=== PATIENT | female | born 1985 | race Caucasian/White ===

== ENCOUNTER 2016-08-07 08:36 | Emergency (ER) | payer OTHER ==
[~2016-08-07] VITALS: Ht 170.2 cm; Wt 111.4 kg
[~2016-08-07 08:36] MED LIST: CITA20TA9 PO; RANI150T3 PO
[2016-08-07 08:40] VITALS: BP 144/88; PULSE 76; TEMP 36.8; O2SAT 97; Ht 170.2 cm; Wt 111.4 kg
[2016-08-07] MEDS ORDERED: CITA40TA12 PO (08:59)
[2016-08-07] MEDS ORDERED: DEXAMETHASONE SOD INJ 10 MG/ML VIAL IM ONE (09:15)
[2016-08-07] MEDS ORDERED: PRED50TA PO (09:41)
--- NOTE | 2016-08-07 09:42 | EMERGENCY ROOM VISIT NOTE ---
ED Visit Note First contact with patient: 08:53 CHIEF COMPLAINT : Sore throat times one day HISTORY OF PRESENT ILLNESS: Patient is a 31-year-old white female who presents to the emergency department for evaluation of a sore throat and a swollen uvula that started this morning. Patient reports that she has had 2-3 days of sinus congestion, cough, nasal congestion and a sinus headache. She states she was unsure whether she was having symptoms related to a cold or allergies. She did have a minor sore throat with this, but noted that it was bilateral. She was using some ibuprofen which was helping with her throat pain. This morning, she woke up noting that her uvula was more sore and swollen, and she was having trouble gagging. She noted that there was some bleeding in the back of her throat. She does snore, denies any trauma to the area, denies any fever. She' s never had symptoms similar to this previously. She rates her discomfort a 7/ 10. She denies any posterior neck pain or stiffness. No rashes. She denies any cough, chest pain, no sputum production. No abdominal pain, no nausea or vomiting. REVIEW OF SYSTEMS: Review of systems as per HPI. All other systems reviewed were negative. 10 systems reviewed. PMH: Electronic medical records are reviewed and summarized as above/below. See Problem List. SOCIAL HISTORY: Patient lives at home with her and children. 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 PHYSICAL EXAM: Vital Signs: Reviewed Nurse's notes. MENTAL STATUS: Patient is a pleasant, well-appearing 31-year-old white female who is awake and alert and laying semiupright on the gurney in no acute distress. She is able to speak in full sentences. EARS: Tympanic membranes intact, not inflamed, have normal contour. External canals clear. THROAT: The pharynx not inflamed and or swollen. No exudates are seen on the tonsils. The oropharyngeal airway is patent. Uvula is midline, slightly swollen and almost hemorrhagic in appearance, no active bleeding however. Soft palate is unremarkable. NOSE: Nares patent, turbinates moist without rhinorrhea. SKIN: Clear and dry, no eruptions. No cyanosis, no petechiae. NECK: Supple, without lymphadenopathy. No meningeal signs. HEART: Regular rate and rhythm, with normal S1 and S2, no murmur or gallop or rub is heard. LUNGS: Breath sounds equal and clear to auscultation without wheezes, rales, or rhonchi heard. EMERGENCY DEPARTMENT COURSE: The patient was seen and evaluated as above. Her old records were reviewed. She is isolated swelling in her uvula, in the setting of upper respiratory symptoms over the last couple of days. Patient was medicated with Decadron 10 mg IM. She does not have any evidence for airway compromise, no trismus, no evidence for retropharyngeal or peritonsillar abscess. She does not appear to have an infectious source and therefore antibiotics were not felt to be indicated. She is encouraged to use Tylenol or ibuprofen for discomfort, soft, liquid diet, saltwater gargles, and was placed on a short course of oral prednisone. She was educated on the worrisome signs or symptoms for which she should return to the emergency department and otherwise encouraged to recheck with her PCP in one to 2 days. Problem List Medical Problems: (1) Dysmetabolic Syndrome X Status: Chronic (2) Hypertension Nos Status: Chronic (3) Personal History Of Urinary Calculi Status: Chronic (4) Status: Resolved (5) Right ankle sprain Status: Resolved Surgical Problems: (1) H/O section Status: Resolved Current/Historical Medications Scheduled Citalopram Hydrobromide (Celexa), 40 MG PO DAILY Prednisone (Prednisone), 50 MG PO DAILY Ranitidine Hcl (Zantac), 150 MG PO BID Allergies Coded Allergies: No Known Allergies (Verified , 08/07/16) Vital Signs Date Time Temp Pulse Resp B/P Pulse Ox O2 Delivery O2 Flow Rate FiO2 08/07/16 08:50 Room Air 98 08/07/16 08:40 36.8 76 18 144/88 97 Room Air Medications Administered Medications (Trade) Dose Ordered Sig/Susan Route Start Time Stop Time Status Last Admin Dose Admin Dexamethasone Sodium Phosphate (Decadron Inj) 10 mg NOW ONCE IM 08/07/16 09:15 08/07/16 09:16 DC 08/07/16 09:14 10 MG Departure Information Impression Primary Impression: Uvulitis Prescriptions Prednisone (Prednisone) 50 Mg Tab 50 MG PO DAILY for 4 Days, #4 TAB Prov: Clover Castro PA 08/07/16 Referrals Misa Harvey D.O. (PCP) Patient Instructions My [facility] Additional Instructions Prednisone 50mg: Once daily until the prescription is finished. It is best to take this earlier in the day as some patients note occasional difficulty falling asleep when taken in the late evening. Acetaminophen(Tylenol) may be used for fever or pain. Use 1000mg every six hours as needed. Avoid using more than 3000mg in a 24 hour period. (AND/OR) Ibuprofen(Motrin, Advil) may be used for fever or pain. Use 600mg every six hours as needed. Take with food. Avoid using more than 2400mg in a 24 hour period. Do not use 2400mg per day for more than three consecutive days without physician direction. Prolonged inappropriate use can lead to stomach upset or ulcers. Rest and drink plenty of fluids. Continue current medications. Return to the ER for worsening throat pain, inability to swallow, severe headache, neck stiffness, chest pain, difficulty breathing, fevers, vomiting, worsening of your condition, or as needed. Follow up with your primary physician this week for a recheck of your current condition.
== END 2016-08-07 09:51 | disposition home or self-care (01) ==
LOC: C.EDB 08:37
DX: K12.2 Cellulitis and abscess of mouth (principal); E88.81 Metabolic syndrome and other insulin resistance; I10 Essential (primary) hypertension; Z87.442 Personal history of urinary calculi; Z79.899 Other long term (current) drug therapy

== ENCOUNTER 2017-03-17 11:09 | Outpatient (CLI) | payer OTHER ==
[~2017-03-17] VITALS: Ht 170.2 cm; Wt 116.5 kg
[~2017-03-17 11:09] MED LIST changes: -CITA20TA9 PO; +CITA40TA12 PO
[2017-03-17] MEDS ORDERED: PRENTAB26 PO (12:05)
[2017-03-17] MEDS ORDERED: PRLSR20 PO (12:05)
[2017-03-17 12:06] VITALS: Ht 170.2 cm; Wt 116.5 kg
[2017-03-17 12:08] LABS: HEMATOCRIT 34.5 % (37-47); HEMOGLOBIN 11.8 g/dL (12.0-16.0); MEAN CORPUSCULAR HEMOGLOBIN 29.4 pg (25-34); MEAN CORPUSCULAR HGB CONC 34.2 g/dl (32-36); MEAN PLATELET VOLUME 9.9 fL (7.4-10.4); PLATELET COUNT 275 K/uL (130-400); RED CELL DISTRIBUTION WIDTH CV 14.1 % (11.5-14.5); RED CELL DISTRIBUTION WIDTH SD 44.4 fL (36.4-46.3)
[2017-03-17 12:27] LABS: ALBUMIN 2.9 gm/dl (3.4-5.0); ALT/SGPT 12 U/L (12-78); AST/SGOT 10 U/L (15-37); BLOOD UREA NITROGEN 10 mg/dl (7-18); CALCIUM 8.9 mg/dl (8.5-10.1); CARBON DIOXIDE 22 mmol/L (21-32); GLUCOSE 84 mg/dl (70-99); POTASSIUM 3.5 mmol/L (3.5-5.1); SODIUM 138 mmol/L (136-145)
[2017-03-17 12:30] LABS: ALKALINE PHOSPHATASE 72 U/L (45-117); TOTAL PROTEIN 6.8 gm/dl (6.4-8.2)
--- NOTE | 2017-03-17 13:41 | DIAGNOSTIC IMAGING REPORT ---
LIMITED (US) CLINICAL HISTORY: Chronic hypertension. COMPARISON STUDY: ultrasound 07/06/2012. FINDINGS: Transabdominal scanning of the fetus was performed. The cervix measures 3.8 cm in length and appears closed. heart rate is 129 beats per minutes. The fetus is in a breech presentation. Amniotic fluid index is 13.3 cm. Posterior placenta. No subchorionic hematoma identified. The composite ultrasound age of the fetus is approximate 24 weeks and 6 days plus or minus one week. weight is 1 pound and 12 ounces +/- ounces. IMPRESSION: 1. Estimated age of 24 weeks and 6 days. 2. heart rate was 129 bpm. 3. The cervix is closed and measures 3.8 cm in length. 4. Normal amniotic fluid index. Electronically signed by: Desmond Longoria M.D. 03/17/2017 1:39 PM Dictated Date/Time: 03/17/2017 1:34 PM
--- NOTE | 2017-03-17 14:17 | Progress Note ---
Progress Note Date of Service Mar 17, 2017. Progress Note Outpatient Note 32 F P2002 at 25 weeks with elevated BP in the office. Seen on L&D for evaluation of chronic hypertension vs. early PIH. Labs done and normal . FHT Cat 1. No contractions. denies headaches or blurred vision. No edema noted on hands, feet or face. Will d/c home. No evidence of hypertension to be treated at this time. Follow up in 1 week in office. Last 24 Hours Test 03/17/17 11:52 White Blood Count 12.00 K/uL Red Blood Count 4.01 M/uL Hemoglobin 11.8 g/dL Hematocrit 34.5 % Mean Corpuscular Volume 86.0 fL Mean Corpuscular Hemoglobin 29.4 pg Mean Corpuscular Hemoglobin Concent 34.2 g/dl RDW Standard Deviation 44.4 fL RDW Coefficient of Variation 14.1 % Platelet Count 275 K/uL Mean Platelet Volume 9.9 fL Sodium Level 138 mmol/L Potassium Level 3.5 mmol/L Chloride Level 106 mmol/L Carbon Dioxide Level 22 mmol/L Anion Gap 10.0 mmol/L Blood Urea Nitrogen 10 mg/dl Creatinine 0.40 mg/dl Est Creatinine Clear Calc Drug Dose 263.9 ml/min Estimated GFR () > 150.0 Estimated GFR (Non- 136.9 BUN/Creatinine Ratio 24.6 Random Glucose 84 mg/dl Calcium Level 8.9 mg/dl Total Bilirubin 0.3 mg/dl Aspartate Amino Transf (AST/SGOT) 10 U/L Alanine Aminotransferase (ALT/SGPT) 12 U/L Alkaline Phosphatase 72 U/L Total Protein 6.8 gm/dl Albumin 2.9 gm/dl Globulin 3.9 gm/dl Albumin/Globulin Ratio 0.7
== END 2017-03-17 14:20 | disposition home or self-care (01) ==
LOC: C.OPB 11:09 → C.LD 11:09 → C.OPB 14:20
PROVIDERS: ATTEND Obstetrics & Gynecology
DX: O16.2 Unspecified maternal hypertension, second trimester (principal); Z3A.25 25 weeks gestation of pregnancy

== ENCOUNTER 2017-06-25 05:40 | Inpatient (IN) | payer OTHER ==
[2017-06-16 15:10] VITALS: BMI 42.0
--- NOTE | 2017-06-16 15:25 | PAT Medication Instructions ---
Service Date Jun 16, 2017. Current Home Medication List Citalopram Hydrobromide (Celexa), 40 MG PO HS Labetalol (Normodyne), 200 MG PO BID Multivit/Min/Iron/Fol Ac/Pren ( Vitamin), 1 TAB PO QPM Omeprazole (Prilosec), 20 MG PO QAM Medication Instructions For Your Scheduled Surgery - Take the following medications the morning of surgery with a sip of water: Labetalol (Normodyne), 200 MG PO BID Omeprazole (Prilosec), 20 MG PO QAM - Take the following medications as scheduled the night before surgery: Citalopram Hydrobromide (Celexa), 40 MG PO HS Labetalol (Normodyne), 200 MG PO BID Multivit/Min/Iron/Fol Ac/Pren ( Vitamin), 1 TAB PO QPM If you have any questions please call us at [phone] or [phone] or [phone]
[2017-06-16 16:02] LABS: BASO % 0.2 %; BASO ABS # 0.02 K/uL (0-0.2); EOS % 1.7 %; EOS ABS # 0.18 K/uL (0-0.5); HEMATOCRIT 32.7 % (37-47); IG# 0.05 K/uL (0.00-0.02); LYMPH % 17.6 %; LYMPH ABS # 1.87 K/uL (1.2-3.4); MEAN CELL VOLUME 83.6 fL (80-100); MEAN CORPUSCULAR HEMOGLOBIN 28.1 pg (25-34); MEAN CORPUSCULAR HGB CONC 33.6 g/dl (32-36); MONO % 8.7 %; MONO ABS # 0.93 K/uL (0.11-0.59); NEUT % 71.3 %; NEUT ABS # 7.58 K/uL (1.4-6.5); PLATELET COUNT 261 K/uL (130-400); RED CELL DISTRIBUTION WIDTH CV 14.3 % (11.5-14.5); RED CELL DISTRIBUTION WIDTH SD 43.9 fL (36.4-46.3); WHITE BLOOD COUNT 10.63 K/uL (4.8-10.8)
[2017-06-16 16:14] LABS: CREATININE 0.65 mg/dl (0.60-1.20); POTASSIUM 3.8 mmol/L (3.5-5.1)
[~2017-06-25] VITALS: Ht 170.2 cm; Wt 124.1 kg
[2017-06-25] VITALS (14 sets, daily range): BP systolic 138–152; BP diastolic 80–96; PULSE 80–97; TEMP 36.7–37.2; O2SAT 95–98; Ht 170.2 cm; Wt 124.1 kg
[~2017-06-25 05:40] MED LIST changes: +LABE1TAB28 PO; +PRENTAB26 PO; +PRLSR20 PO; -RANI150T3 PO
[2017-06-25] MEDS ORDERED: CITRIC ACID/SODIUM CITRATE 15 ML UDC PO ONE (05:45)
[2017-06-25] MEDS ORDERED: CEFAZOLIN IV 3,000 MG in DEXTROSE 5% 50ML 50 ML IV SCH (06:00)
[2017-06-25 06:06] LABS: BASO % 0.1 %; BASO ABS # 0.01 K/uL (0-0.2); EOS % 1.6 %; EOS ABS # 0.16 K/uL (0-0.5); HEMATOCRIT 34.3 % (37-47); HEMOGLOBIN 11.4 g/dL (12.0-16.0); IG# 0.05 K/uL (0.00-0.02); LYMPH % 21.6 %; LYMPH ABS # 2.18 K/uL (1.2-3.4); MEAN CELL VOLUME 83.1 fL (80-100); MEAN CORPUSCULAR HEMOGLOBIN 27.6 pg (25-34); MEAN PLATELET VOLUME 9.7 fL (7.4-10.4); MONO % 8.2 %; MONO ABS # 0.83 K/uL (0.11-0.59); NEUT ABS # 6.88 K/uL (1.4-6.5); PLATELET COUNT 264 K/uL (130-400); RED CELL DISTRIBUTION WIDTH CV 14.2 % (11.5-14.5); WHITE BLOOD COUNT 10.11 K/uL (4.8-10.8)
[2017-06-25 06:18] LABS: MEAN CORPUSCULAR HGB CONC 33.2 g/dl (32-36)
[2017-06-25] MEDS ORDERED: MoRPHine SULFATE PF 1 MG/ML 10 ML AMP/VIAL ONE (06:55)
--- NOTE | 2017-06-25 06:58 | History & Physical Bridge Note ---
H&P Re-Evaluation Bridge Note: I have examined the patient, reviewed the History & Physical and in the interval since the performance of the History & Physical I have noted the following changes of clinical significance: No changes noted
[2017-06-25] MEDS ORDERED: LACTATED RINGER'S 1000ML 500 ML IV PRN (07:17)
[2017-06-25] MEDS ORDERED: NALOXONE HCL INJ 1 MG in SODIUM CHLORIDE 0.9% 1000ML 1,000 ML IV PRN ×4 (07:17)
[2017-06-25] MEDS ORDERED: NALOXONE HCL INJ 0.08 MG in SYRINGE 1.8 ML IV PRN (07:17)
[2017-06-25] MEDS ORDERED: SODIUM CHLORIDE 0.9% 1000ML 1,000 ML IV PRN (07:26)
[2017-06-25] MEDS ORDERED: MEPERIDINE HCL 25 MG/ML CARP IV PRN ×2 (07:30)
[2017-06-25] MEDS ORDERED: ATROPINE SULFATE 0.1 MG/ML 5ML SYR IV PRN (07:30)
[2017-06-25] MEDS ORDERED: DC INTRASPINAL MORPHINE SCH (07:30)
[2017-06-25] MEDS ORDERED: ONDANSETRON INJ 2 MG/ML 2 ML VIAL IV PRN ×2 (07:30)
[2017-06-25] MEDS ORDERED: NALBUPHINE HCL INJ 10 MG/ML AMP IV PRN (07:30)
[2017-06-25] MEDS ORDERED: EpHEDrine SULFATE INJ 50 MG/ML AMP IV PRN ×2 (07:30)
[2017-06-25] MEDS ORDERED: MoRPHine SULFATE PF 1 MG/ML 10 ML AMP/VIAL EPI PRN (07:30)
[2017-06-25] MEDS ORDERED: PHENYLEPHRINE 100MCG/ML 5ML SYR IV PRN (07:30)
[2017-06-25] MEDS ORDERED: DiphenhydrAMINE HCL 50 MG/ML VIAL IV PRN (07:30)
[2017-06-25] MEDS ORDERED: NALOXONE HCL 0.4 MG/1 ML VIAL/CARP IV PRN (07:30)
[2017-06-25] MEDS ORDERED: KETOROLAC TROMETHAMINE 30 MG/ML VIAL IV. PRN ×2 (07:30)
[2017-06-25] MEDS ORDERED: NO NARCOTICS OR SEDATIVES SCH (07:30)
[2017-06-25] MEDS ORDERED: PROMETHAZINE HCL INJ 12.5 MG in SODIUM CHLORIDE 0.9% 50ML 50 ML IV PRN (07:30)
[2017-06-25] MEDS ORDERED: SUCCINYLCHOLINE CHLORIDE 20 MG/ML 10 ML VIAL IV ONE (07:58)
[2017-06-25] MEDS ORDERED: PROPOFOL IV EMULSION 10 MG/ML 20 ML VIAL IV ONE (07:58)
[2017-06-25] MEDS ORDERED: ONDANSETRON INJ 2 MG/ML 2 ML VIAL ONE (07:58)
[2017-06-25] MEDS ORDERED: OXYTOCIN INJ 10 UNITS/ML VIAL ONE ×3 (07:58→08:33)
[2017-06-25] MEDS ORDERED: METOCLOPRAMIDE HCL INJ 5 MG/ML 2 ML VIAL ONE (07:58)
[2017-06-25] MEDS ORDERED: MIDAZOLAM HCL 1 MG/ML 2ML VIAL ONE ×2 (08:11→08:19)
--- NOTE | 2017-06-25 08:43 | [facility] Post Operative Brief Note ---
Immediate Operative Summary Operative Date Jun 25, 2017. Pre-Operative Diagnosis History of previous section; term ; requesting permanent sterilization, hx left salpingectomy Post-Operative Diagnosis Same Procedure(s) Performed Repeat section with right tubal ligation, has history of prior left salpingectomy; delivery of a live female child at [address]. Surgeon Dr. Marie Land Surveyor Surgeon(s) Dr. Corley Estimated Blood Loss 700 ml Findings Consistent with Post-Op Diagnosis Fluids (cc crystalloids) 3200 Specimens Cord blood Placenta-exam. Portion of right fallopian tube. Pt has no left fallopian tube due to previous ectopic Drains Li to gravity Anesthesia Type Spinal Complication(s) none Disposition Accompanied Pt To Recover: no Disposition: L&D
[2017-06-25] MEDS ORDERED: LACTATED RINGER'S 1000ML 1,000 ML IV SCH ×2 (08:51→22:45)
[2017-06-25] MEDS ORDERED: SENNA 8.6 MG TAB PO PRN (09:00)
[2017-06-25] MEDS ORDERED: SUPERCREAM 0.870 % 15GM JAR EXT PRN (09:00)
[2017-06-25] MEDS ORDERED: LANOLIN OINT EXT PRN (09:00)
[2017-06-25] MEDS ORDERED: HYDROCORTISONE ACETATE 25 MG SUPP PR PRN (09:00)
[2017-06-25] MEDS ORDERED: DIPHTHERIA/TETANUS/PERTUSSIS 0.5 ML SYR/VIAL IM. ONE (09:00)
[2017-06-25] MEDS ORDERED: MAGNESIUM HYDROXIDE SUSP 30 ML UDC PO PRN (09:00)
[2017-06-25] MEDS ORDERED: BENZOCAINE 20% AER SPR 82.5 GM CAN EXT PRN (09:00)
[2017-06-25] MEDS: OXYTOCIN INJ 30 UNITS in LACTATED RINGER'S 1000ML 1,000 ML IV SCH ×2 (09:16→17:40)
--- NOTE | 2017-06-25 09:43 | OPERATIVE REPORT ---
DATE OF OPERATION: 06/25/2017 PREOPERATIVE DIAGNOSES: 1. Term at 39 weeks and 4 days gestation. 2. History of previous section. 3. Requesting permanent sterilization. 4. History of left salpingectomy secondary to ectopic . POSTOPERATIVE DIAGNOSES: Same. OPERATIVE PROCEDURE: Repeat low transverse section with right tubal ligation. SURGEON: Dr. Marie. PRECINCT POLICE CAPTAIN: Dr. Corley. ANESTHESIA: Spinal. ESTIMATED BLOOD LOSS: 700 mL. INTRAVENOUS FLUIDS: 3200 mL crystalloids. URINE OUTPUT: 750 mL clear yellow urine. SPECIMENS: Cord blood, placenta and portion of right fallopian tube. DRAINS: Li to gravity. COMPLICATIONS: None. DISPOSITION: To labor and delivery. OPERATIVE FINDINGS: The patient delivered a viable female weighing 8 pounds 4 ounces and delivered via repeat section at 8:04 a.m. Apgars were 9 at 1 minute, 9 at 5 minutes. Please see forestry laborer's notes for further baby assessment. Cord blood was then obtained and intact placenta with 3-vessel cord was delivered at 8:05 and sent to pathology. Grossly normal uterus and bilateral ovaries noted. The patient has a history of left salpingectomy due to a previous ectopic . A right tubal ligation was performed via Niecy technique. The tubal segment was removed and sent to pathology as well. Both patient and baby tolerated the surgery well and were in recovery with stable vital signs. OPERATIVE PROCEDURE IN DETAIL: The patient was taken to the operating room where spinal anesthesia was administered. The patient was then immediately placed in a dorsal supine position with a left lateral tilt and was prepped and draped in a manner appropriate for the procedure. Once the anesthesia was found to be adequate, a Pfannenstiel skin incision was made over the previous surgical scar and was carried down through to a layer of the rectus fascia. Fascia was nicked in the midline and extended bilaterally with curved Cee scissors. The superior aspect of the fascial incision was grasped with Reggie clamps, elevated, and rectus muscles were dissected off with the use of the curved Cee scissors. Likewise, the inferior aspect of the fascial incision was grasped with Reggie clamps, elevated, and rectus muscles were dissected off with the use of curved Cee scissors. Rectus muscles were in midline. The peritoneum was entered and the peritoneal incision was then extended cephalocaudally with gentle traction. An Easu retractor was then placed within the abdomen along with a bladder blade. The vesicouterine peritoneum was then identified and a bladder flap was created with the Metzenbaum scissors and digital traction. Once the bladder was pushed away from the lower uterine segment, a transverse incision was then made on the uterus and extended bilaterally with digital traction. The membranes were then ruptured noting meconium-stained amniotic fluid noted. The head was identified and delivered through the incision along with the rest of the body. Baby was bulb suctioned at delivery. Cord was clamped x2 and cut. The baby was immediately handed to an awaiting forestry laborer for further evaluation and management. Please see their notes for further baby assessment. Cord blood was then obtained and intact placenta with 3-vessel cord was delivered through the incision and sent to pathology. The uterus was then exteriorized and wrapped in a moist laparotomy sponge. The uterus was then cleared of any trailing membranes and debris with a laparotomy sponge. The uterine incision was then grasped with ring forceps at 4 quadrants and was then closed with 0 Vicryl suture in continuous locking fashion. Any residual bleeding was suture ligated with 0 Vicryl suture in a [id number] interrupted fashion. Excellent hemostasis was noted at the incision. Attention was then directed towards the right fallopian tube which was followed out to its fimbriated end, grasped at midpoint with a Milton clamp and was suture ligated with 2-0 chromic suture via Niecy technique. A second 2-0 chromic suture was used to ligate once again. Once it was doubly ligated, the tubal segment was removed with Metzenbaum scissors. The tubal stumps were then cauterized with the electrocautery. Excellent hemostasis was noted. At this point, the posterior cul-de-sac was then irrigated with warm saline solution. The uterus was then placed back within its normal anatomic position within the abdomen. The anterior cul-de-sac was then irrigated with warm saline solution. Excellent hemostasis was noted at the uterine incision. All instruments were then removed from the abdomen. The Esau retractor was also removed from the abdomen. The peritoneum was then grasped with Yessica clamps at 4 quadrants and was then closed with 2-0 Vicryl suture in continuous running fashion. Rectus fascia was then closed with 0 Vicryl suture in continuous running fashion. Subcutaneous tissue was irrigated with warm saline solution and was reapproximated with 2-0 Vicryl suture in a continuous running fashion. Skin was then closed with setefany. Excellent hemostasis was noted through all tissue layers. All sponge, instrument, and needle counts were found to be correct x2. Both patient and baby tolerated the surgery well and sent to recovery with stable vital signs. I attest to the content of the Intraoperative Record and any orders documented therein. Any exception s are noted below.
[2017-06-25] MEDS: SIMETHICONE 80 MG CHEW PO SCH ×3 (11:31→20:21)
--- NOTE | 2017-06-25 15:21 | Anesthesiology Progress Note ---
Anesthesia Post Op Note Date & Time Jun 25, 2017 at 15:21 Vital Signs Vital Signs Past 12 Hours Date Time Temp Pulse Resp B/P (MAP) Pulse Ox O2 Delivery O2 Flow Rate FiO2 06/25/17 14:20 18 97 06/25/17 13:15 16 97 06/25/17 13:15 37.1 85 16 148/88 (108) 97 Room Air 06/25/17 12:27 18 98 06/25/17 12:27 36.7 86 18 143/80 (101) 98 Room Air 06/25/17 11:15 98 Room Air 06/25/17 11:15 16 98 06/25/17 11:15 36.7 80 16 138/88 (105) 98 Room Air Notes Mental Status: alert / awake / arousable, participated in evaluation Pt Amnestic to Procedure: Yes Nausea / Vomiting: adequately controlled Pain: adequately controlled Airway Patency, RR, SpO2: stable & adequate BP & HR: stable & adequate Hydration State: stable & adequate Anesthetic Complications: no major complications apparent
[2017-06-25] MEDS: DOCUSATE SODIUM 100 MG CAP PO SCH (20:20)
[2017-06-25] MEDS: LABETALOL HCL 200 MG TAB PO SCH (20:21)
[2017-06-25] MEDS: CITALOPRAM 40 MG TAB PO SCH (21:30)
[2017-06-25] MEDS ORDERED: NURSING VERBAL MED ORDER STA (22:40)
[2017-06-26] VITALS (8 sets, daily range): BP systolic 137–160; BP diastolic 87–99; PULSE 78–91; TEMP 36.5–36.7; O2SAT 97–99
[2017-06-26] MEDS ORDERED: OXYCODONE/ACETAMINOPHEN 5-325 TAB PO PRN
[2017-06-26] MEDS ORDERED: ONDANSETRON INJ 2 MG/ML 2 ML VIAL IV PRN
[2017-06-26] MEDS ORDERED: KETOROLAC TROMETHAMINE 30 MG/ML VIAL IV. PRN
[2017-06-26] MEDS: OXYCODONE/ACETAMINOPHEN 5-325 TAB PO PRN ×3 (00:19→20:14)
[2017-06-26] MEDS: IBUPROFEN 600 MG TAB PO PRN ×4 (00:19→20:14)
[2017-06-26 06:26] LABS: BASO % 0.2 %; BASO ABS # 0.02 K/uL (0-0.2); EOS % 1.7 %; EOS ABS # 0.19 K/uL (0-0.5); HEMATOCRIT 30.6 % (37-47); HEMOGLOBIN 9.9 g/dL (12.0-16.0); IG# 0.03 K/uL (0.00-0.02); LYMPH % 14.5 %; LYMPH ABS # 1.62 K/uL (1.2-3.4); MEAN CELL VOLUME 84.3 fL (80-100); MEAN CORPUSCULAR HEMOGLOBIN 27.3 pg (25-34); MEAN CORPUSCULAR HGB CONC 32.4 g/dl (32-36); MEAN PLATELET VOLUME 9.7 fL (7.4-10.4); MONO % 9.7 %; MONO ABS # 1.09 K/uL (0.11-0.59); NEUT % 73.6 %; NEUT ABS # 8.26 K/uL (1.4-6.5); PLATELET COUNT 224 K/uL (130-400); RED CELL DISTRIBUTION WIDTH CV 14.2 % (11.5-14.5); WHITE BLOOD COUNT 11.21 K/uL (4.8-10.8)
[2017-06-26] MEDS: DOCUSATE SODIUM 100 MG CAP PO SCH ×2 (08:32→20:10)
[2017-06-26] MEDS: PANTOprazole SOD 40 MG TAB PO SCH (08:32)
[2017-06-26] MEDS: FERROUS SULFATE 325 MG TAB PO SCH (08:32)
[2017-06-26] MEDS: PRENATAL VITAMIN TAB PO SCH (08:32)
[2017-06-26] MEDS: LABETALOL HCL 200 MG TAB PO SCH ×2 (08:32→20:10)
[2017-06-26] MEDS: SIMETHICONE 80 MG CHEW PO SCH ×4 (08:33→20:10)
--- NOTE | 2017-06-26 11:47 | Surgery Progress Note ---
Surgery Progress Note Date of Service Jun 26, 2017. Subjective Post OP Day: 2 + feeling well, + chest pain, + ambulating, + flatus, + pain controlled, + diet (Tolerating Po food and Meds), No complaints, No SOB, No bowel movement Objective Vital Signs: Date Time Temp Pulse Resp B/P (MAP) Pulse Ox O2 Delivery O2 Flow Rate FiO2 06/26/17 09:05 36.7 87 16 155/93 (113) 99 Room Air 06/26/17 09:00 99 Room Air 06/26/17 07:50 99 Room Air 06/26/17 07:50 36.7 91 18 155/93 (113) 99 Room Air 06/26/17 05:30 90 137/87 (104) 06/26/17 04:45 36.5 78 18 160/90 (113) 97 Room Air 06/26/17 00:00 97 Room Air 06/26/17 00:00 36.5 85 18 142/88 (106) 97 Room Air 06/25/17 23:15 18 97 06/25/17 22:15 16 95 06/25/17 21:15 18 96 06/25/17 20:15 97 16 147/90 (109) 06/25/17 20:15 16 97 06/25/17 19:15 37.2 84 16 152/96 (114) 97 Room Air 152/95 (114) 06/25/17 19:15 16 97 06/25/17 19:15 97 Room Air 06/25/17 18:15 18 97 06/25/17 17:15 18 98 06/25/17 16:15 18 98 06/25/17 15:45 37.1 85 18 144/88 (106) 98 Room Air 06/25/17 15:45 97 Room Air 06/25/17 15:15 18 97 06/25/17 14:20 18 97 06/25/17 13:15 16 97 06/25/17 13:15 37.1 85 16 148/88 (108) 97 Room Air 06/25/17 12:27 18 98 06/25/17 12:27 36.7 86 18 143/80 (101) 98 Room Air General Appearance: WD/WN, no apparent distress Head: normocephalic, atraumatic Neck: supple, no adenopathy, thyroid normal, no JVD, no carotid bruits, trachea midline Respiratory/Chest: chest non-tender, lungs clear, normal breath sounds, no respiratory distress, no accessory muscle use Cardiovascular: regular rate, rhythm, no edema, no gallop, no JVD, no murmur Abdomen: normal bowel sounds, non tender, non distended, soft, no organomegaly , no pulsatile mass Incision(s): clean, dry, intact, no erythema, no drainage Extremities: normal range of motion, non-tender, normal inspection, no pedal edema, no calf tenderness, normal capillary refill, pelvis stable Laboratory Results: Results Past 24 Hours Test 06/26/17 06:12 Range/Units White Blood Count 11.21 4.8-10.8 K/uL Red Blood Count 3.63 4.2-5.4 M/uL Hemoglobin 9.9 12.0-16.0 g/dL Hematocrit 30.6 37-47 % Mean Corpuscular Volume 84.3 80-100 fL Mean Corpuscular Hemoglobin 27.3 25-34 pg Mean Corpuscular Hemoglobin Concent 32.4 32-36 g/dl Platelet Count 224 130-400 K/uL Mean Platelet Volume 9.7 7.4-10.4 fL Neutrophils (%) (Auto) 73.6 % Lymphocytes (%) (Auto) 14.5 % Monocytes (%) (Auto) 9.7 % Eosinophils (%) (Auto) 1.7 % Basophils (%) (Auto) 0.2 % Neutrophils # (Auto) 8.26 1.4-6.5 K/uL Lymphocytes # (Auto) 1.62 1.2-3.4 K/uL Monocytes # (Auto) 1.09 0.11-0.59 K/uL Eosinophils # (Auto) 0.19 0-0.5 K/uL Basophils # (Auto) 0.02 0-0.2 K/uL RDW Standard Deviation 44.0 36.4-46.3 fL RDW Coefficient of Variation 14.2 11.5-14.5 % Immature Granulocyte % (Auto) 0.3 % Immature Granulocyte # (Auto) 0.03 0.00-0.02 K/uL Assessment & Plan C/sec Day #1 pt doing well continue day #1 care
[2017-06-26] MEDS: CITALOPRAM 40 MG TAB PO SCH (21:48)
[2017-06-26] MEDS ORDERED: BISACODYL 5 MG TABEC PO ONE (22:00)
[2017-06-27 06:23] LABS: HEMATOCRIT 29.6 % (37-47); HEMOGLOBIN 9.7 g/dL (12.0-16.0)
[2017-06-27 07:25] VITALS: BP 152/89; PULSE 85; TEMP 37.1; O2SAT 97
[2017-06-27] MEDS: PRENATAL VITAMIN TAB PO SCH (07:56)
[2017-06-27] MEDS: LABETALOL HCL 200 MG TAB PO SCH (07:56)
[2017-06-27] MEDS: DOCUSATE SODIUM 100 MG CAP PO SCH (07:56)
[2017-06-27] MEDS: SIMETHICONE 80 MG CHEW PO SCH (07:56)
[2017-06-27] MEDS: FERROUS SULFATE 325 MG TAB PO SCH (07:56)
[2017-06-27] MEDS: IBUPROFEN 600 MG TAB PO PRN (07:57)
[2017-06-27] MEDS: OXYCODONE/ACETAMINOPHEN 5-325 TAB PO PRN (07:58)
[2017-06-27] MEDS: PANTOprazole SOD 40 MG TAB PO SCH (08:00)
--- NOTE | 2017-06-27 08:49 | Surgery Progress Note ---
Surgery Progress Note Date of Service Jun 27, 2017. Subjective Post OP Day: 2 + feeling well, + bowel movement, + flatus Objective Vital Signs: Date Time Temp Pulse Resp B/P (MAP) Pulse Ox O2 Delivery O2 Flow Rate FiO2 06/27/17 07:25 97 Room Air 06/27/17 07:25 37.1 85 18 152/89 (110) 97 Room Air 06/26/17 23:45 36.7 88 16 152/87 (108) 06/26/17 23:45 Room Air 06/26/17 20:15 86 158/99 (118) 06/26/17 15:30 Room Air 06/26/17 09:05 36.7 87 16 155/93 (113) 99 Room Air 06/26/17 09:00 99 Room Air General Appearance: no apparent distress Abdomen: non tender, soft Incision(s): clean, dry, intact Extremities: normal range of motion, non-tender, normal inspection, no pedal edema, no calf tenderness Laboratory Results: Results Past 24 Hours Test 06/27/17 06:14 Range/Units Hemoglobin 9.7 12.0-16.0 g/dL Hematocrit 29.6 37-47 % Assessment & Plan regular diet POD#2 discharged
[2017-06-27] MEDS ORDERED: OXYC-57 PO (08:51)
[2017-06-27] MEDS ORDERED: MTR600X PO (08:51)
--- NOTE | 2017-06-27 08:52 | Discharge Instructions ---
Discharge Instructions Date of Service Jun 27, 2017. Admission Reason for Admission: Previous Section X2, Ghtn, Desires Steril Discharge Discharge Diagnosis / Problem: term delivered Discharge Goals Goal(s): Routine recovery after delivery, Routine recovery after Activity Recommendations Activity Limitations: as noted below Lifting Limitations: no more than 10 pounds Exercise/Sports Limitations: gradually increase as tolerated May Resume Sexual Activity: after follow-up appointment Shower/Bathe: no limitations Driving or Machine Use: resume 3 days after discharge . Instructions / Follow-Up Instructions / Follow-Up ACTIVITY RECOMMENDATIONS: * Gradual return to full activity over the next 2-3 weeks. * No lifting - nothing heavier than baby over the next 2-3 weeks. * Do not engage in vigorous exercise, sexual activity or sports until cleared by your physician. * Do not drive or operate any motorized equipment until cleared by your physician. * You may shower/bathe daily. BREAST CARE: If you are not breast feeding: * Wear a supportive bra 24 hours a day for one to two weeks. * Avoid stimulating your breasts and nipples as much as possible during the first few weeks after delivery. * When taking a shower, have the warm water hit your back, not breasts. * When your breasts feel full, apply ice packs. Usually three to four times a day helps ease the discomfort. * Take a mild pain medication (Tylenol/Motrin) when you are uncomfortable. If breast feeding: * Use breast milk to lubricate nipples. Lansinoh cream may be used for sore nipples. You do not need to remove cream prior to breast feeding. If using a different brand of cream, check the label for directions regarding removal of cream prior to nursing. * Wear a supportive bra. * If having problems with breasts or breast feeding, call a sharepoint consultant or your health care provider. OVER THE COUNTER MEDICATION: * For discomfort or pain, you may use Acetaminophen (Tylenol), Ibuprofen (Advil ), or Naproxen (Aleve) following the package directions. * For constipation you may use Colace following the package directions. SPECIAL CARE INSTRUCTIONS: When you are discharged from the hospital, it is important for you to follow the instructions listed below: * During the first week at home, you should be able to care for yourself and your baby. In addition, the usual light household activities are encouraged. * Limit your activities to the way you feel. Do not try to clean the house or move furniture. Be sensible. * If you actively engage in sports and have done so up until the time of your delivery, you may resume these activities as soon as you feel able. This may take up to one month or even longer. Use good judgment. * Continue to take your vitamins for at least six weeks after the of your baby. * Your diet need not be limited unless you were on a special diet before your delivery. Breast-feeding mothers need around 2500 calories per day and at least 64-80 ounces of fluid per day (8 to 10 glasses). * You should eat foods from the four major food groups. Crash diets or fad diets are to be avoided. Eating lean meats, fresh fruits and vegetables, low-fat dairy products, high fiber foods and a regular exercise program, will help you get back to your pre- weight without putting your health at risk. * Constipation is sometimes a problem after delivery. Take a mild laxative as needed. If breast feeding, Milk of Magnesia is acceptable to use. You may use a suppository or Fleets enema if no episiotomy. * A daily shower or tub bath is suggested. Be sure to thoroughly and gently dry the perineum. * A bloody vaginal discharge will usually continue until around four weeks post . A small amount of bleeding may continue for as long as six weeks. Vaginal discharge changes from the bright red bleeding after delivery to pink then brownish and finally yellowish-pink before becoming white and disappearing. * Bleeding may increase with activity. Your first period may come in 4-8 weeks. If you are breast feeding, your period may be delayed even longer. * [place] (sex) can begin whenever both you and your partner feel comfortable and do not have any form of genital infection. It is recommended that you wait at least six weeks for internal and external healing to occur. If you have questions, please talk to your health care practitioner. A condom should be used to prevent infection and . * Foreplay, gentle intercourse and lubrication is very important the first several times to prevent pain. A water-based lubricant such as K-Y jelly or Astroglide may be used. * Tampons and/or Douching should be avoided until after six weeks check-up. * If you have RH negative blood and your baby is RH positive, you will receive RHOGAM by injection prior to discharge. The nurse will give you a card to keep with you that has the date and place that you received RHOGAM after delivery. * During your care, you had a Rubella screen done to check for the presence of rubella antibodies in your blood. If your test was negative, you will receive a Rubella vaccine prior to discharge. This vaccine may cause a fever, soreness at the injection site and flu-like symptoms. If these symptoms persist, notify your health care practitioner. is not advised for three months after a Rubella vaccine. * Verbalizes understanding of car seat law as reviewed with patient nursing. * Car Seat hand-out given and reviewed with patient by nursing. * Shaken baby information reviewed with patient by nursing. Call you doctor if: * Heavy bleeding (saturating several pads an hour) or passing clots the size of your fist. * A fever >101 degrees F (38.3 degrees C) on two occasions four hours apart and /or chills. * Unusual pain in the pelvic or vaginal areas. Pain should improve each day . * Call the doctor for any increased redness, drainage or swelling around the incision and any pain unrelieved by prescribed pain medication. * Any signs or symptoms of phlebitis (possible blood clots forming in the veins ): leg pain, warm, red or swollen area on leg. * "Baby Blues" lasting longer than two weeks. If you have any questions or concerns, call your health care practitioner at . FOLLOW-UP VISIT: * Incision check (staple removal) in 1 week. Please call doctor's office at to set up appointment. * Please call the office at to schedule a 6 week examination. It is important you keep this appointment. * It is important for you to make arrangements for either yearly or twice yearly check-ups thereafter. Current Hospital Diet Patient's current hospital diet: Regular OB Diet Discharge Diet Recommended Diet: Kosher Diet, Regular OB Diet Fluid Restriction: None Procedures Procedures Performed: Repeat section with right tubal ligation, has history of prior left salpingectomy; delivery of a live female child at 0804. Pending Studies Studies pending at discharge: no Medical Emergencies . Who to Call and When: Medical Emergencies: If at any time you feel your situation is an emergency, please call 911 immediately. . Non-Emergent Contact Non-Emergency issues call your: Primary Care Provider . . "Provider Documentation" section prepared by Allen Riley. .
[2017-06-27] MEDS ORDERED: BISACODYL 10 MG SUPP PR PRN (09:00)
[2017-06-27 10:15] VITALS: BP_DIAS 89; PULSE 85; TEMP 37.1
== END 2017-06-27 10:40 | disposition home or self-care (01) | DRG 766 ==
LOC: C.LD 05:40 → EDSTATUS 07:30 → C.OBG 11:17
PROVIDERS: ADMIT Obstetrics & Gynecology; ATTEND Obstetrics & Gynecology
PROC: 10D00Z1 Extraction of Products of Conception, Low, Open Approach (ICD-10-PCS; principal; 2017-06-25 07:30)
PROC: 0UT50ZZ Resection of Right Fallopian Tube, Open Approach (ICD-10-PCS; principal; 2017-06-25 07:30)
DX: O34.211 Maternal care for low transverse scar from previous cesarean delivery (principal); Z3A.39 39 weeks gestation of pregnancy; Z37.0 Single live birth; Z90.79 Acquired absence of other genital organ(s)